=== PATIENT | male | born 1990 | race Caucasian/White ===

== ENCOUNTER 2017-05-02 16:50 | Emergency (ER) | payer OTHER ==
[~2017-05-02] VITALS: Ht 177.8 cm; Wt 64.7 kg
[~2017-05-02 16:50] MED LIST: [UNRECOGNIZED DRUG - CODE] PO
[2017-05-02 16:52] VITALS: Ht 177.8 cm; Wt 64.7 kg
[2017-05-02 17:58] LABS: BASOPHILS % 0.3 % (0.0-2.0); EOSINOPHILS # 0.4 10^3/ul (0.0-0.5); EOSINOPHILS % 5.8 % (0.0-7.0); HEMOGLOBIN 14.7 g/dl (14.0-18.0); LYMPHOCYTES # 1.8 10^3/ul (0.8-2.9); LYMPHOCYTES % 29.8 % (15.0-51.0); MEAN CORPUSCULAR HEMOGLOBIN 30.8 pg (29.0-33.0); MEAN CORPUSCULAR HGB CONC 34.2 g/dl (32.0-37.0); MEAN PLATELET VOLUME 10.6 fl (7.4-10.4); MONOCYTE # 0.5 10^3/ul (0.3-0.9); MONOCYTES % 7.7 % (0.0-11.0); NEUTROPHIL # 3.4 10^3/ul (1.6-7.5); NEUTROPHILS % 56.4 % (39.0-77.0); PLATELET COUNT 179 10^3/UL (140-415); RED BLOOD COUNT 4.78 10^6/ul (4.70-6.10); RED CELL DISTRIBUTION WIDTH 11.7 % (11.5-14.5)
[2017-05-02] MEDS ORDERED: PERM120L5 TP (18:15)
[2017-05-02] MEDS ORDERED: PRED20TA PO (18:16)
[2017-05-02 18:21] LABS: ALBUMIN 4.8 g/dl (3.3-4.9); ALBUMIN/GLOBULIN RATIO 1.71; BILIRUBIN,INDIRECT 0.3 mg/dl (0-1.1); BILIRUBIN,TOTAL 0.3 mg/dl (0.2-1.3); CALCIUM 9.9 mg/dl (8.4-10.2); CREATININE 0.96 mg/dl (0.61-1.24); POTASSIUM 4.4 mmol/L (3.5-5.1); TOTAL PROTEIN 7.6 g/dl (6.1-8.1)
--- NOTE | 2017-05-02 18:41 | ERD ---
ER Documentation Chief Complaint Chief Complaint RASH ALL OVER THE BODY X 2 MONTHS HPI 27-year-old male complaining of rash all over body 2 months. Patient states rash is very pruritic in nature. Patient states that he was "away for 14 months " but did not divulge where he was for the last 14 months. He states he was an area that he "would not have sexual interactions". Patient has been using hydrocortisone and stated he felt it improved his symptoms but was not totally sure. Denies fever. Rash started around buttocks and has extended to genitals. Rash is also on trunk and all extremities. ROS All systems reviewed and are negative except as per history of present illness. Medications Home Meds Active Scripts Prednisone* (Prednisone*) 20 Mg Tab, 40 MG PO DAILY for 4 Days, TAB Prov:BALTA GARNER PA-C 05/02/17 Permethrin (Permethrin) 120 Ml Liquid, 120 ML TP ONCE, #120 ML Prov:BALTA GARNER PA-C 05/02/17 Reported Medications Phenytoin (Dilantin) 30 Mg Cap, 300 MG PO HS, CAP 11/20/13 Allergies Allergies: Coded Allergies: No Known Allergy (Unverified , 11/20/13) PMhx/Soc Medical and Surgical Hx: pt denies Medical Hx, pt denies Surgical Hx History of Surgery: Yes (plate in jaw ) Anesthesia Reaction: No Hx Neurological Disorder: Yes (seizure ) Hx Respiratory Disorders: No Hx Cardiac Disorders: No Hx Psychiatric Problems: No Hx Alcohol Use: No Hx Substance Use: No Hx Tobacco Use: No Smoking Status: Current every day smoker Physical Exam Vitals Vital Signs Date Time Temp Pulse Resp B/P Pulse Ox O2 Delivery O2 Flow Rate FiO2 05/02/17 16:52 98.2 91 19 105/56 95 Physical Exam GENERAL: The patient is well-appearing, well-nourished, in no acute distress CHEST: Clear to auscultation bilaterally. There are no rales, wheezes or rhonchi. HEART: Regular rate and rhythm. No murmurs, clicks, rubs or gallops. No S3 or S4. ABDOMEN:Soft, nontender and nondistended. Good bowel sounds. No rebound or guarding. No gross peritonitis. No gross organomegaly or masses. No Ferguson sign or McBurney point tenderness. BACK: No midline or flank tenderness. SKIN: Erythematous maculopapular rash over abdomen, groin, back, and extremities. There are plaques of erythema noted around buttocks. Rash appears to be on the palms of hands. Result Diagram: 05/02/17175205/02/171752 Results 24 hrs Laboratory Tests Test 05/02/17 17:53 White Blood Count 6.010^3/ul Red Blood Count 4.7810^6/ul Hemoglobin 14.7g/dl Hematocrit 43.0% Mean Corpuscular Volume 90.0fl Mean Corpuscular Hemoglobin 30.8pg Mean Corpuscular Hemoglobin Concent 34.2g/dl Red Cell Distribution Width 11.7% Platelet Count 71808^3/UL Mean Platelet Volume 10.6fl Neutrophils % 56.4% Lymphocytes % 29.8% Monocytes % 7.7% Eosinophils % 5.8% Basophils % 0.3% Nucleated Red Blood Cells % 0.0/100WBC Neutrophils # 3.410^3/ul Lymphocytes # 1.810^3/ul Monocytes # 0.510^3/ul Eosinophils # 0.410^3/ul Basophils # 0.010^3/ul Nucleated Red Blood Cells # 0.010^3/ul Sodium Level 146mmol/L Potassium Level 4.4mmol/L Chloride Level 102mmol/L Carbon Dioxide Level 31mmol/L Anion Gap 17 Blood Urea Nitrogen 9mg/dl Creatinine 0.96mg/dl Glucose Level 91mg/dl Calcium Level 9.9mg/dl Total Bilirubin 0.3mg/dl Direct Bilirubin 0.00mg/dl Indirect Bilirubin 0.3mg/dl Aspartate Amino Transf (AST/SGOT) 31IU/L Alanine Aminotransferase (ALT/SGPT) 36IU/L Alkaline Phosphatase 60IU/L Total Protein 7.6g/dl Albumin 4.8g/dl Globulin 2.80g/dl Albumin/Globulin Ratio 1.71 Procedures/MDM ER course: CBC, CMP and RPR were drawn. MDM: 27-year-old male complaining of pruritic type rash. RPR was drawn in case will be followed up to determine if patient was positive for syphilis. I have low suspicion for bacterial infection. Patient will be treated for possible parasitic, scabies infection. Rash may also be associated with viral etiology. I will suspicion for fungal infection. This case was discussed and evaluated also by Dr. Leos and he agreed with discharge plan and medication. I have low suspicion for life-threatening rash. Patient is discharged with strict ER precautions and recommended to follow-up with primary care within 1-2 days for close evaluation. Patient is told if symptoms change or worsen to return to the ER. All questions answered at discharge Departure Diagnosis: Primary Impression: Rash Condition: Stable Patient Instructions: Self-Care for Skin Rashes Referrals: [facility] YOU HAVE RECEIVED A MEDICAL SCREENING EXAM AND THE RESULTS INDICATE THAT YOU DO NOT HAVE A CONDITION THAT REQUIRES URGENT TREATMENT IN THE EMERGENCY DEPARTMENT. FURTHER EVALUATION AND TREATMENT OF YOUR CONDITION CAN WAIT UNTIL YOU ARE SEEN IN YOUR DOCTORS OFFICE WITHIN THE NEXT 1-2 DAYS. IT IS YOUR RESPONSIBILITY TO MAKE AN APPOINTMENT FOR FOLOW-UP CARE. IF YOU HAVE A PRIMARY DOCTOR --you should call your primary doctor and schedule an appointment IF YOU DO NOT HAVE A PRIMARY DOCTOR YOU CAN CALL OUR PHYSICIAN REFERRAL HOTLINE AT IF YOU CAN NOT AFFORD TO SEE A PHYSICIAN YOU CAN CHOSE FROM THE FOLLOWING [facility] [address] [facility] [address] [facility] [address]. [facility] [address] [facility] [address] [facility]. [facility]. [address] Additional Instructions: FOLLOW UP WITH YOUR PRIMARY CARE PHYSICIAN TOMORROW.Return to this facility if you are not improving as expected. BALTA GARNER PA-C May 02, 2017 18:41
== END 2017-05-02 19:05 | disposition home or self-care (01) ==
LOC: FTE 16:50
DX: R21 Rash and other nonspecific skin eruption (principal); F17.210 Nicotine dependence, cigarettes, uncomplicated
CPT/HCPCS: 80053; 85025; 86592; Z7502; 99283

== ENCOUNTER 2017-05-08 12:07 | Emergency (ER) | payer OTHER ==
[~2017-05-08] VITALS: Ht 177.8 cm; Wt 66.2 kg
[~2017-05-08 12:07] MED LIST changes: +PERM120L5 TP; +PRED20TA PO
[2017-05-08 12:08] VITALS: Ht 177.8 cm; Wt 66.2 kg
--- NOTE | 2017-05-08 13:17 | ERD ---
ER Documentation Chief Complaint Chief Complaint RASH ON ARMS AND LEGS X FEW WEEKS HPI The patient is a 27-year-old male, presenting to the ER because of chronic skin rash for more than 2 months. He was seen in the ER about 6 days ago and treated for possible scabies with permethrin. He stated that he felt better but the symptoms came back for the last 2 days. He complains of diffuse body pruritus and also between the fingers and toes. He denies fever, chills, cough , neck pain, chest pain, dyspnea. Past medical history/surgical history: None ROS All systems reviewed and are negative except as per history of present illness. Medications Home Meds Active Scripts Permethrin (Permethrin) 120 Ml Liquid, 120 ML TP ONCE, #120 Prov:SURAJ WEST MD 05/08/17 Prednisone* (Prednisone*) 20 Mg Tab, 40 MG PO DAILY for 4 Days, TAB Prov:BALTA GARNER PA-C 05/02/17 Permethrin (Permethrin) 120 Ml Liquid, 120 ML TP ONCE, #120 ML Prov:BALTA GARNER PA-C 05/02/17 Reported Medications Phenytoin (Dilantin) 30 Mg Cap, 300 MG PO HS, CAP 11/20/13 Allergies Allergies: Coded Allergies: No Known Allergy (Unverified , 05/08/17) PMhx/Soc History of Surgery: Yes (plate in jaw ) Anesthesia Reaction: No Hx Neurological Disorder: Yes (seizure ) Hx Respiratory Disorders: No Hx Cardiac Disorders: No Hx Psychiatric Problems: No Hx Alcohol Use: No Hx Substance Use: No Hx Tobacco Use: No Physical Exam Vitals Vital Signs Date Time Temp Pulse Resp B/P Pulse Ox O2 Delivery O2 Flow Rate FiO2 05/08/17 12:08 97.9 74 18 104/55 99 Physical Exam Const: No acute distress. Head: Atraumatic. Eyes: Normal Conjunctiva. ENT: Normal External Ears, Nose and Mouth. Neck: Full range of motion. No meningismus. Resp: Clear to auscultation bilaterally. Cardio: Regular rate and rhythm. Abd: Soft, non distended, normal bowel sounds, non tender. Skin: Scattered excoriation throughout her body, no vesicle, no blisters, no petechia Back: No midline or flank tenderness. Ext: No cyanosis, or edema. Neur: Awake and alert. No focal deficit Psych: Normal Mood and Affect. Procedures/MDM MEDICAL MAKING DECISION: The patient is a 37-year-old male, presenting with nonspecific dermatitis of unclear etiology. He requested for refill of vomiting which I did The differential diagnoses considered include but are not limited to eczema, cellulitis, allergic dermatitis, contact dermatitis Departure Diagnosis: Primary Impression: Rash and other nonspecific skin eruption Condition: Good Comments I discussed the findings with the patient. I advised the patient to follow-up with the primary physician in about 1-2 days for reevaluation and referral to industrial court magistrate, sooner if needed and return if any concern. Disclaimer: Inadvertent spelling and grammatical errors are likely due to EHR/ dictation software use and do not reflect on the overall quality of patient care. Also, please note that the electronic time recorded on this note does not necessarily reflect the actual time of the patient encounter. SURAJ WEST MD May 08, 2017 13:17
[2017-05-08] MEDS ORDERED: PERM120L5 TP (13:35)
== END 2017-05-08 14:25 | disposition home or self-care (01) ==
LOC: FTE 12:07
DX: R21 Rash and other nonspecific skin eruption (principal)
CPT/HCPCS: 99283

== ENCOUNTER 2017-07-26 09:38 | Emergency (ER) | END 2017-07-26 11:57 | disposition home or self-care (01) ==

== ENCOUNTER 2017-08-04 15:50 | Emergency (ER) | END 2017-08-04 17:50 | disposition home or self-care (01) ==

== ENCOUNTER 2017-08-16 17:21 | Emergency (ER) | END 2017-08-16 22:47 | disposition home or self-care (01) ==

== ENCOUNTER 2017-09-14 18:53 | Emergency (ER) | END 2017-09-14 20:44 | disposition home or self-care (01) ==

== ENCOUNTER 2017-10-12 22:11 | Emergency (ER) | END 2017-10-13 01:53 | disposition home or self-care (01) ==

== ENCOUNTER 2017-10-18 17:45 | Emergency (ER) | END 2017-10-19 02:06 | disposition left against medical advice (07) ==

== ENCOUNTER 2018-03-01 13:15 | Emergency (ER) | END 2018-03-01 15:47 | disposition home or self-care (01) ==